=== PATIENT | female | born 1945 | race Two or more races ===

== ENCOUNTER 2019-05-13 05:20 | Day surgery (SDC) | payer OTHER ==
[~2019-05-13 05:20] MED LIST: METOPROLOL SUC100 MG
== END 2019-05-13 10:20 | disposition home or self-care (01) ==
LOC: CIR.AMB 05:20
DX: K62.89 Other specified diseases of anus and rectum (principal); K57.30 Diverticulosis of large intestine without perforation or abscess without bleeding